=== PATIENT | male | born 1990 | race Caucasian/White ===

== ENCOUNTER 2019-08-08 21:00 | Inpatient (IN) | payer BC ==
[~2019-08-08] VITALS: Ht 177.8 cm; Wt 70.5 kg
--- NOTE | 2019-08-08 21:15 | NUR ---
PT BIB CARE FLIGHT FROM [facility], WITH C/O GROSS LEFT SIDED FACIAL SWELLING X2 DAYS AND DIFFICULTY SWALLOWING X1 DAY, PT ALSO REPORTS LEFT SIDED DENTAL PAIN. PT AOX4 AND ABLE TO SPEAK FULL SENTENCES. 4MG MORPHINE, 4MG ZOFRAN, 100MCG FENTANYL AND 650 CLINDAMYCIN PROVIDED TO PT PRIOR TO ARRIVAL. MONITORING APPLIED, CALL LIGHT WITHIN REACH, ALL SAFETY MEASURES IN PLACE.
[2019-08-08] MEDS ORDERED: MORPHINE SULFATE 4 MG/ML, 1ML IVPush PRN (21:30)
[2019-08-08] MEDS ORDERED: SODIUM CHLORIDE FLUSH 10ML SYR IVF ONE (21:30)
[2019-08-08] MEDS ORDERED: DEXAMETHASONE 4 MG/ML, 1ML IV ONE (21:30)
[2019-08-08] MEDS ORDERED: SODIUM CHLORIDE 0.9% 1,000ML IVBOLUS ONE (21:30)
[2019-08-08] MEDS ORDERED: SODIUM CHLORIDE 0.9% 1,000 ML IV ONE (21:30)
[2019-08-08] MEDS ORDERED: MORPHINE SULFATE 4 MG/ML, 1ML ONE (21:46)
[2019-08-08] MEDS ORDERED: DEXAMETHASONE 10 MG in SODIUM CHLORIDE 0.9% 50 ML IV ONE (22:00)
[2019-08-08 22:08] LABS: ALBUMIN 3.7 g/dL (3.4-5.0); ANION GAP 8 mmol/L (5-15); CHLORIDE 109 mmol/L (98-107); CREATININE 1.17 mg/dL (0.7-1.3)
[2019-08-08 22:12] LABS: MEAN CORPUSCULAR HEMOGLOBIN 30.4 pg (27.5-34.5); MEAN CORPUSCULAR HGB CONC 33.7 g/dL (33.2-36.2); MEAN CORPUSCULAR VOLUME 90.2 fL (81-97); MEAN PLATELET VOLUME 7.8 fL (7.4-10.4); PLATELET COUNT 206 x10^3/uL (130-400); RED BLOOD COUNT 4.74 x10^6/uL (4.38-5.82); RED CELL DISTRIBUTION WIDTH 13.5 % (9.4-14.8)
[2019-08-08] MEDS ORDERED: LEVOFLOXACIN/PMX 750MG/150ML 150 ML ONE (23:07)
[2019-08-08] MEDS ORDERED: CLINDAMYCIN PMX 600MG/50ML 50 ML ONE (23:07)
[2019-08-08 23:13] LABS: MD YES
[2019-08-08 23:16] LABS: <RBC MORPHOLOGY> NORMAL; BAND#(MANUAL) 2.72 x10^3/uL; BANDS%(MANUAL) 13 % (0-7); LYMPH#(MANUAL) 0.21 x10^3/uL (1-3.4); LYMPHS% (MANUAL) 1 % (22-44); MONOS#(MANUAL) 3.14 x10^3/uL (0.3-2.7); MONOS% (MANUAL) 15 % (2-9); REACTIVE LYMPHS # (MANUAL) 0.21 x10^3/uL (0-0); REACTIVE LYMPHS % (MANUAL) 1 % (0-0); SEGS% (MANUAL) 70 % (42-75)
[2019-08-08 23:17] LABS: <PLATELET ESTIMATE> ADEQUATE; <PLT MORPHOLOGY> NORMAL PLT MORPH
[2019-08-08] MEDS ORDERED: OMNIPAQUE 350 MG/ML, 100ML BOTTLE ONE (23:29)
[2019-08-08] MEDS ORDERED: SODIUM CHLORIDE 0.9% 1,000 ML IV SCH (23:30)
[2019-08-08] MEDS: CLINDAMYCIN PMX 600MG/50ML 50 ML IV SCH (23:36)
[2019-08-08] MEDS: LEVOFLOXACIN/PMX 750MG/150ML 150 ML IV SCH (23:36)
[2019-08-09] MEDS: SODIUM CHLORIDE 0.9% 1,000 ML IV SCH ×3 (00:41→21:00)
[2019-08-09] MEDS ORDERED: hydrALAzine 20 MG/ML, 1ML IVPush PRN (01:00)
[2019-08-09] MEDS ORDERED: ONDANSETRON 2MG/ML, 2ML IVPush PRN (01:00)
[2019-08-09] MEDS ORDERED: ACETAMINOPHEN 325 MG TABLET PO PRN (01:00)
--- NOTE | 2019-08-09 01:27 | NUR ---
pt resting queitly, resp rate even and regular, is tolerating own secretions, obvious swelling noted around throat.
[2019-08-09 03:24] VITALS: BP 108/61
[2019-08-09 04:00] VITALS: BP 114/62
[2019-08-09] MEDS: CLINDAMYCIN PMX 600MG/50ML 50 ML IV SCH ×4 (04:58→21:55)
[2019-08-09] MEDS: morphine SULFATE 10 MG/ML, 1ML IVPush PRN ×4 (05:57→21:19)
[2019-08-09] MEDS ORDERED: DEXAMETHASONE 4 MG/ML, 5ML IVPush ONE (08:00)
[2019-08-09] MEDS ORDERED: DEXAMETHASONE 4 MG/ML, 1ML ONE (08:24)
--- NOTE | 2019-08-09 11:28 | NUR ---
TF GOAL if needed: w/ propofol: PROMOTE @ 80ML/HR off propofol: PROMOTE @ 90ML/HR
[2019-08-09] MEDS ORDERED: MIDAZOLAM 1 MG/ML, 2ML ONE (11:52)
[2019-08-09] MEDS ORDERED: FENTANYL PF 100 MCG/2ML ONE (11:52)
[2019-08-09] MEDS ORDERED: SUCCINYLCHOLINE 20 MG/ML, 10ML ONE (12:20)
[2019-08-09] MEDS ORDERED: ROCURONIUM 10 MG/ML,10ML ONE (12:20)
[2019-08-09] MEDS ORDERED: PROPOFOL 10 MG/ML, 20ML ONE (12:20)
[2019-08-09] MEDS ORDERED: LIDOCAINE 1%-EPI 1:100K, 20ML ONE (12:28)
[2019-08-09] MEDS ORDERED: ALBUTEROL/IPRATROPIUM 2.5MG/0.5MG, 3 ML ONE (14:53)
[2019-08-09] MEDS: DEXAMETHASONE 4 MG/ML, 1ML IVPush SCH (21:00)
[2019-08-09] MEDS: LEVOFLOXACIN/PMX 750MG/150ML 150 ML IV SCH (23:14)
[2019-08-10] MEDS: morphine SULFATE 10 MG/ML, 1ML IVPush PRN ×3 (00:34→10:04)
[2019-08-10] MEDS: CLINDAMYCIN PMX 600MG/50ML 50 ML IV SCH ×2 (02:03→08:00)
[2019-08-10 04:00] VITALS: BP 119/64
[2019-08-10] MEDS: DEXAMETHASONE 4 MG/ML, 1ML IVPush SCH (04:20)
[2019-08-10 04:43] LABS: MEAN CORPUSCULAR HEMOGLOBIN 30.1 pg (27.5-34.5); MEAN CORPUSCULAR VOLUME 91.1 fL (81-97); MEAN PLATELET VOLUME 8.7 fL (7.4-10.4); PLATELET COUNT 234 x10^3/uL (130-400); RED CELL DISTRIBUTION WIDTH 14.7 % (9.4-14.8)
[2019-08-10 04:54] LABS: ANION GAP 4 mmol/L (5-15); CALCIUM 8.6 mg/dL (8.5-10.1); CHLORIDE 110 mmol/L (98-107)
[2019-08-10 05:43] LABS: MD YES
[2019-08-10 05:44] LABS: BAND#(MANUAL) 2.72 x10^3/uL; BANDS%(MANUAL) 12 % (0-7); LYMPH#(MANUAL) 0.91 x10^3/uL (1-3.4); LYMPHS% (MANUAL) 4 % (22-44); MONOS#(MANUAL) 0.91 x10^3/uL (0.3-2.7); MONOS% (MANUAL) 4 % (2-9); SEG#(MANUAL) 18.16 x10^3/uL (1.8-6.8); SEGS% (MANUAL) 80 % (42-75)
[2019-08-10 05:45] LABS: <PLATELET ESTIMATE> ADEQUATE; <PLT MORPHOLOGY> NORMAL PLT MORPH; <RBC MORPHOLOGY> NORMAL
[2019-08-10] MEDS: SODIUM CHLORIDE 0.9% 1,000 ML IV SCH ×2 (07:42→19:10)
[2019-08-10] MEDS: AMPICILLIN/SULBACTAM 3 GM in SODIUM CHLORIDE 0.9% 100 ML IV SCH ×3 (10:17→22:24)
[2019-08-10] MEDS: ENOXAPARIN 40 MG/0.4 ML SQ SCH (15:28)
[2019-08-10] MEDS: OXYcodone 5 MG/5 ML ORAL.SOL UDC PO PRN (15:29)
--- NOTE | 2019-08-10 16:21 | NUR ---
The patient may benefit from SOFTWARE SYSTEMS ARCHITECT intervention in a SNF. Addendum: 08/10/19 at 1622 by Taryn MANNING Amended: Links added.
[2019-08-11 04:22] LABS: MEAN CORPUSCULAR HEMOGLOBIN 30.1 pg (27.5-34.5); MEAN CORPUSCULAR HGB CONC 33.3 g/dL (33.2-36.2); MEAN CORPUSCULAR VOLUME 90.4 fL (81-97); MEAN PLATELET VOLUME 8.5 fL (7.4-10.4); PLATELET COUNT 267 x10^3/uL (130-400); RED BLOOD COUNT 3.93 x10^6/uL (4.38-5.82); RED CELL DISTRIBUTION WIDTH 14.9 % (9.4-14.8)
[2019-08-11] MEDS: AMPICILLIN/SULBACTAM 3 GM in SODIUM CHLORIDE 0.9% 100 ML IV SCH ×4 (04:35→21:51)
[2019-08-11 04:39] VITALS: BP 115/69
[2019-08-11 04:49] LABS: MD YES
[2019-08-11 04:53] LABS: BAND#(MANUAL) 1.42 x10^3/uL; BANDS%(MANUAL) 8 % (0-7); LYMPHS% (MANUAL) 9 % (22-44); MONOS#(MANUAL) 1.42 x10^3/uL (0.3-2.7); MONOS% (MANUAL) 8 % (2-9); SEGS% (MANUAL) 75 % (42-75)
[2019-08-11 04:54] LABS: <PLATELET ESTIMATE> ADEQUATE; <PLT MORPHOLOGY> NORMAL PLT MORPH; <RBC MORPHOLOGY> NORMAL
[2019-08-11] MEDS: SODIUM CHLORIDE 0.9% 1,000 ML IV SCH ×3 (05:26→21:56)
[2019-08-11] MEDS: OXYcodone 5 MG/5 ML ORAL.SOL UDC PO PRN ×5 (09:26→23:59)
[2019-08-11] MEDS ORDERED: OMNIPAQUE 350 MG/ML, 100ML BOTTLE ONE (10:51)
[2019-08-11] MEDS: ENOXAPARIN 40 MG/0.4 ML SQ SCH (15:11)
[2019-08-12] MEDS: AMPICILLIN/SULBACTAM 3 GM in SODIUM CHLORIDE 0.9% 100 ML IV SCH ×4 (04:03→21:32)
[2019-08-12] MEDS: OXYcodone 5 MG/5 ML ORAL.SOL UDC PO PRN ×5 (04:04→23:23)
[2019-08-12 04:06] VITALS: BP 97/47
[2019-08-12 09:45] LABS: MEAN CORPUSCULAR HEMOGLOBIN 30.2 pg (27.5-34.5); MEAN CORPUSCULAR HGB CONC 33.4 g/dL (33.2-36.2); MEAN CORPUSCULAR VOLUME 90.3 fL (81-97); MEAN PLATELET VOLUME 7.6 fL (7.4-10.4); PLATELET COUNT 299 x10^3/uL (130-400); RED BLOOD COUNT 4.29 x10^6/uL (4.38-5.82); RED CELL DISTRIBUTION WIDTH 13.7 % (9.4-14.8)
[2019-08-12 10:04] LABS: BASOPHILS # (AUTO) 0.05 x10^3/uL (0-0.1); BASOPHILS % (AUTO) 0 % (0-1); EOSINOPHILS # (AUTO) 0.04 x10^3/uL (0-0.4); EOSINOPHILS % (AUTO) 0 % (1-7); LYMPHOCYTES # (AUTO) 2.34 x10^3/uL (1-3.4); LYMPHOCYTES % (AUTO) 18 % (22-44); MD SCAN; MONOCYTES # (AUTO) 1.78 x10^3/uL (0.2-0.8); MONOCYTES % (AUTO) 14 % (2-9); NEUTROPHILS # (AUTO) 8.88 x10^3/uL (1.8-6.8); NEUTROPHILS % (AUTO) 68 % (42-75)
[2019-08-12] MEDS: SODIUM CHLORIDE 0.9% 1,000 ML IV SCH ×2 (11:15→21:32)
[2019-08-12] MEDS: ENOXAPARIN 40 MG/0.4 ML SQ SCH (14:31)
[2019-08-12] MEDS: DOCUSATE 100 MG CAPSULE PO SCH (21:32)
[2019-08-13] MEDS: AMPICILLIN/SULBACTAM 3 GM in SODIUM CHLORIDE 0.9% 100 ML IV SCH ×4 (03:41→20:18)
[2019-08-13 04:35] LABS: MEAN CORPUSCULAR HEMOGLOBIN 30.1 pg (27.5-34.5); MEAN CORPUSCULAR HGB CONC 33.5 g/dL (33.2-36.2); MEAN CORPUSCULAR VOLUME 89.8 fL (81-97); MEAN PLATELET VOLUME 7.5 fL (7.4-10.4); PLATELET COUNT 319 x10^3/uL (130-400); RED BLOOD COUNT 4.44 x10^6/uL (4.38-5.82); RED CELL DISTRIBUTION WIDTH 13.7 % (9.4-14.8)
[2019-08-13 05:47] LABS: BASOPHILS # (AUTO) 0.05 x10^3/uL (0-0.1); BASOPHILS % (AUTO) 0 % (0-1); EOSINOPHILS # (AUTO) 0.17 x10^3/uL (0-0.4); EOSINOPHILS % (AUTO) 2 % (1-7); LYMPHOCYTES # (AUTO) 2.46 x10^3/uL (1-3.4); LYMPHOCYTES % (AUTO) 23 % (22-44); MD SCAN; MONOCYTES # (AUTO) 1.66 x10^3/uL (0.2-0.8); MONOCYTES % (AUTO) 15 % (2-9); NEUTROPHILS % (AUTO) 60 % (42-75)
[2019-08-13] MEDS: OXYcodone 5 MG/5 ML ORAL.SOL UDC PO PRN ×4 (06:21→20:21)
[2019-08-13] MEDS: DOCUSATE 100 MG CAPSULE PO SCH ×3 (07:37→20:23)
[2019-08-13] MEDS: SODIUM CHLORIDE 0.9% 1,000 ML IV SCH (08:41)
[2019-08-13] MEDS ORDERED: OMNIPAQUE 350 MG/ML, 100ML BOTTLE ONE (12:27)
[2019-08-13] MEDS: ENOXAPARIN 40 MG/0.4 ML SQ SCH (15:00)
[2019-08-13] MEDS ORDERED: FENTANYL PF 250 MCG/5ML ONE (16:00)
[2019-08-13] MEDS ORDERED: MIDAZOLAM 1 MG/ML, 2ML ONE (16:00)
[2019-08-13] MEDS ORDERED: BACITRACIN 50,000 UNIT ONE (16:21)
[2019-08-13] MEDS ORDERED: PROPOFOL 10 MG/ML, 100ML IV ONE (16:24)
[2019-08-13] MEDS ORDERED: ONDANSETRON 2MG/ML, 2ML ONE (16:24)
[2019-08-13] MEDS ORDERED: DEXAMETHASONE 4 MG/ML, 1ML ONE (16:24)
[2019-08-13] MEDS ORDERED: hydrALAzine 20 MG/ML, 1ML IV PRN (16:30)
[2019-08-13] MEDS ORDERED: PROMETHAZINE 25 MG/ML, 1ML IVPush PRN (16:30)
[2019-08-13] MEDS ORDERED: ALBUTEROL SULFATE 2.5 MG/3 ML NPPB PRN (16:30)
[2019-08-13] MEDS ORDERED: HYDROmorphone 1 MG/ML, 1ML INJ IVPush PRN (16:30)
[2019-08-13] MEDS ORDERED: BACITRACIN 50,000 UNIT IM ONE (16:30)
[2019-08-13] MEDS ORDERED: LABETALOL 5MG/ML, 20ML IV PRN (16:30)
[2019-08-13] MEDS ORDERED: DIPHENHYDRAMINE 50 MG/ML, 1ML IVPush PRN (16:30)
[2019-08-13] MEDS ORDERED: FENTANYL PF 100 MCG/2ML IV PRN (16:30)
[2019-08-13] MEDS ORDERED: MEPERIDINE/PF 25MG/0.5ML IVPush PRN (16:30)
[2019-08-13] MEDS ORDERED: HALOPERIDOL 5 MG/ML IV PRN (16:30)
[2019-08-13] MEDS ORDERED: OXYcodone 5 MG/5 ML ORAL.SOL UDC PO PRN (16:30)
[2019-08-13] MEDS: DEXAMETHASONE 10 MG in SODIUM CHLORIDE 0.9% 50 ML IV SCH (22:56)
[2019-08-14] MEDS: SODIUM CHLORIDE 0.9% 1,000 ML IV SCH ×2 (01:28→07:00)
[2019-08-14] MEDS: AMPICILLIN/SULBACTAM 3 GM in SODIUM CHLORIDE 0.9% 100 ML IV SCH ×4 (03:04→20:57)
[2019-08-14] MEDS: DEXAMETHASONE 10 MG in SODIUM CHLORIDE 0.9% 50 ML IV SCH (05:38)
[2019-08-14] MEDS: DOCUSATE 100 MG CAPSULE PO SCH ×2 (09:42→20:57)
[2019-08-14] MEDS: ENOXAPARIN 40 MG/0.4 ML SQ SCH (14:59)
[2019-08-15] MEDS: AMPICILLIN/SULBACTAM 3 GM in SODIUM CHLORIDE 0.9% 100 ML IV SCH ×2 (03:57→08:26)
[2019-08-15 04:00] VITALS: BP 112/67
[2019-08-15 04:53] LABS: CREATININE 0.82 mg/dL (0.7-1.3)
[2019-08-15] MEDS ORDERED: AMOX1TAB61 PO (07:58)
[2019-08-15] MEDS: DOCUSATE 100 MG CAPSULE PO SCH (08:27)
== END 2019-08-15 09:58 | disposition home or self-care (01) | DRG 11 ==
LOC: ED 22:47 → EDIP 23:07 → CCU 08-09 02:15 → DCLOUNGE 08-15 09:48
PROVIDERS: ADMIT Internal Medicine; ATTEND Internal Medicine
PROC: 0B110F4 Bypass Trachea to Cutaneous with Tracheostomy Device, Open Approach (ICD-10-PCS; 2019-08-10)
PROC: 0J950ZZ Drainage of Left Neck Subcutaneous Tissue and Fascia, Open Approach (ICD-10-PCS; principal; 2019-08-13 17:00)
DX: K12.2 Cellulitis and abscess of mouth (principal); J96.01 Acute respiratory failure with hypoxia; L02.11 Cutaneous abscess of neck; L02.01 Cutaneous abscess of face; K11.20 Sialoadenitis, unspecified; R59.1 Generalized enlarged lymph nodes; M24.60 Ankylosis, unspecified joint; J39.2 Other diseases of pharynx; K02.9 Dental caries, unspecified; K04.7 Periapical abscess without sinus; Z79.52 Long term (current) use of systemic steroids
CPT/HCPCS: 36415; 70100; 70487; 70491; 71045; 74230; 80048; 82040; 82565; 84145; 85025; 87015; 87040; 87070; 87075; 87076; 87081; 87102; 87116; 87147; 87205; 87206; 94002; 96374; 96375; 99291; G0378; J0295; J1100; J1650; J1956; J2250; J2405; J2704; J3010; J3490; Q9967; 92524-GN; J0330; J2270; J7030